=== PATIENT | female | born 1980 | race Asian ===

== ENCOUNTER → 2017-01-10 | Outpatient (CLI) | payer BC | LOC: FIMAGING 13:54 | PROVIDERS: ATTEND Family Medicine | DX: Z12.39 Encounter for other screening for malignant neoplasm of breast (principal); N63 Unspecified lump in breast ==

== ENCOUNTER → 2017-08-19 | Outpatient (CLI) | payer BC | LOC: BRMIMAGING 08:52 | PROVIDERS: ATTEND Obstetrics & Gynecology | DX: Z12.39 Encounter for other screening for malignant neoplasm of breast (principal); N63.21 Unspecified lump in the left breast, upper outer quadrant | CPT/HCPCS: 76641-PO ==

== ENCOUNTER → 2018-10-10 | Outpatient (CLI) | payer BC | LOC: FIMAGING 11:58 | PROVIDERS: ATTEND Obstetrics & Gynecology | DX: N63.21 Unspecified lump in the left breast, upper outer quadrant (principal) ==